=== PATIENT | male | born 1955 | race Caucasian/White ===

== ENCOUNTER 2023-05-24 08:22 | Outpatient (REF) | payer OTHER, SELFPAY | END 2023-05-24 08:23 | disposition home or self-care (01) | LOC: HO.SH 08:22 | PROVIDERS: PCP Internal Medicine; Visit Provider Internal Medicine | DX: Z01.118 Encounter for examination of ears and hearing with other abnormal findings (principal); H90.3 Sensorineural hearing loss, bilateral | CPT/HCPCS: 92557 ==

== ENCOUNTER 2023-05-24 09:33 | Outpatient (REF) | payer SELFPAY ==
--- NOTE | 2023-05-24 13:02 | MHC.AU.MED ---
Medical Clearance for Hearing Instrumentation Date: 05/24/23 Patient Name: Krzysztof Olguin Date of : 1955 Primary Care Provider: Referring Provider: Dharmesh Chou MD We have seen your patient on 05/24/23 and have determined that they are a candidate for amplification (See accompanying report). Specifically, they would benefit from: Hearing aid use in both ears There is a statute that addresses Medical Evaluation Requirements prior to fitting a patient with a hearing aid. According to [place] statute 265 CMR:6.03(1), (a) General. Except as provided in 265 CMR 6.03(1)(b), a cloth shearing supervisor shall not sell a hearing aid unless the prospective user has presented to the cloth shearing supervisor a written statement signed by a licensed physician that states that the patient's hearing loss has been medically evaluated and the patient may be considered a candidate for a hearing aid. The medical evaluation must have taken place within the preceding six months. Please note: Due to the [place] Statute referenced above, we cannot accept a signature other than that of a licensed physician. TRANSPORTATION DISPATCH MANAGER and PA signatures cannot be accepted. I am in agreement with the above recommendation. There is no medical contraindication for hearing instrumentation. Physician Signature Date Physician Name (Printed)
== END 2023-05-24 09:34 | disposition home or self-care (01) ==
LOC: HO.HAP 09:33
PROVIDERS: Visit Provider Internal Medicine
DX: Z46.1 Encounter for fitting and adjustment of hearing aid (principal); H90.3 Sensorineural hearing loss, bilateral
CPT/HCPCS: 92590

== ENCOUNTER 2023-06-07 14:54 | Outpatient (REF) | payer SELFPAY | END 2023-06-07 14:55 | disposition home or self-care (01) | LOC: HO.HAP 14:54 | PROVIDERS: Visit Provider Internal Medicine | DX: Z46.1 Encounter for fitting and adjustment of hearing aid (principal); H90.3 Sensorineural hearing loss, bilateral | CPT/HCPCS: 92700; V5261; V5267; V5299 ==

== ENCOUNTER 2023-06-22 13:24 | Outpatient (REF) | payer SELFPAY | END 2023-06-22 13:25 | disposition home or self-care (01) | LOC: HO.HAP 13:24 | PROVIDERS: Visit Provider Internal Medicine | DX: Z13.89 Encounter for screening for other disorder (principal) ==

== ENCOUNTER 2023-11-26 15:48 | Emergency (ER) | payer BC, SELFPAY ==
--- NOTE | ~2023-11-26 | XR_ITS ---
EXAMINATION: XR TIBIA AND FIBULA, LEFT CLINICAL INFORMATION: Pain, swelling COMPARISON: None available. TECHNIQUE: AP and lateral views of the left tibia and fibula were obtained. FINDINGS: The bones and soft tissues are normal. No fracture. No osseous lesions. Extensive vascular calcifications. XR/XR tibia fibula LT 2V IMPRESSION: Normal left tibia and fibula. Electronically signed by: Pauly Bee MD 11/26/2023 07:28 PM EDT
--- NOTE | ~2023-11-26 | US_ITS ---
EXAMINATION: US TRIPLEX LOWER EXTREMITY, LEFT CLINICAL INFORMATION: Pain, swelling, rule out DVT COMPARISON: None available. TECHNIQUE: Color-flow triplex imaging with spectral analysis and compression Doppler were performed on the left lower extremity. FINDINGS: Respiratory variation, normal compression and augmented flow are noted throughout the left lower extremity. The visualized common femoral vein, superficial femoral vein, profunda femoral vein, popliteal vein and midcalf peroneal and posterior tibial venous segments show no evidence of deep venous thrombosis. There is no Wahl's cyst. There are 2 fluid collections in the calf measuring 1.6 x 0.6 x 1.5 cm and 2.5 x 0.4 x 2.2 cm. US/US venous duplex LE IMPRESSION: 1. No evidence of deep venous thrombosis involving the left lower extremity. 2. 2 fluid collections in the calf. Electronically signed by: Pauly Bee MD 11/26/2023 06:29 PM EDT
[2023-11-26 15:55] VITALS: BP 153/78; PULSE 99; RESP 16; TEMP 36.7; O2SAT 94; BMI 25.5
--- NOTE | 2023-11-26 15:55 | ED.GENADULT ---
HPI - General Adult General Chief complaint: Extremity Problem Stated complaint: left calf pain, swelling Time Seen by Provider: 11/26/23 17:19 Source: patient Mode of arrival: ambulatory Limitations: no limitations History of Present Illness ED Provider: Irina PÉREZ narrative: Patient is a 68-year-old male presenting to the ED with complaint of left calf pain and swelling since yesterday. States that he was walking out of his house and could tell that he was going to miss the step. He made a split second decision to put more weight onto his left leg than he normally would have to prevent a fall forward onto his face. He states that the pain and swelling to his left lower leg began immediately after this incident. He denies head strike or loss of consciousness, state he didn't fall but just put too much weight onto his left leg. Went to urgent care this morning for an x-ray, and was referred to the ED to rule out DVT. He denies chest pain, palpitations, dyspnea. Denies prior PE/DVT. States pain has significantly improved since yesterday. complaint: left lower leg pain Onset (ago): day(s) Quality: aching Pain Consistency: other (improving) Associated symptoms: denies other symptoms Treatments prior to arrival: none Related Data Allergies Allergy/AdvReac Type Severity Reaction Status Date / Time No Known Allergies Allergy Verified 11/26/23 15:58 Review of Systems Review of Systems: As per HPI Yes all other systems are reviewed and are negative Constitutional: Constitutional: Reports as per HPI [facility] Social History Social History Advance Directives: No Advance Directives Information Provided: No Physical Exam ED Vital Signs: Vital Signs - 24 hr 11/26/23 15:55 11/26/23 19:06 Temperature 98.1 F 97.4 F Pulse Rate 99 95 Respiratory Rate 16 18 Blood Pressure 153/78 H 140/76 H Pulse Oximetry 94 100 Oxygen Delivery Method Room Air Room Air BMI result Body Mass Index 25.5 Vital signs have been reviewed and appear to be correct. Blood pressure elevated. Heart rate normal. Respiratory rate normal. Temperature normal. Oxygen saturation normal. Const General: cooperative, healthy appearing and no acute distress Orientation/consciousness: oriented to person, oriented to place, oriented to time and patient oriented x3 Limitations: no limitations HENMT Head: Yes normocephalic and Yes atraumatic Ears: external ears normal General nose exam: Normal external nose present Face and sinus: Yes face symmetric Mouth: oropharynx normal and moist mucous membranes Throat: Yes uvula midline Eyes Pupils: Equal, round and reactive pupils present Neck Neck: Yes normal visual inspection and Yes supple Resp Effort & Inspection: normal respiratory effort and able to speak in complete sentences Auscultation: clear to auscultation bilaterally Cardio Rate: regular rate Rhythm: regular rhythm Heart sounds: S1 normal heart sound present and S2 normal heart sound present GI Palpation (GI): Soft to palpation and nontender Auscultation: normoactive bowel sounds General: Yes no CVA tenderness Back/Spine/Pelvis Back: no CVA tenderness Skin General skin exam: elasticity normal and turgor normal Neuro General: oriented to person, oriented to place, oriented to time, patient oriented x3, moves all extremities, no focal motor deficits and CN's II-XI intact bilaterally Cranial nerves: Yes Equal, round and reactive pupils present Cognition (Neuro): normal cognition Extrem General: Yes full ROM, Yes normal exam except as noted, Yes no pedal edema and Yes no calf tenderness Left lower extremity: lower leg (no achilles tenderness, negative Singh test) Details: tenderness Location: of the posterior calf, localized swelling Location: of the proximal lower leg and no edema; no erythema, no palpable cords, no ecchymosis and no unusual warmth and foot Details: vascular exam Details: dorsalis pedis pulse present, posterior tibial pulse present and normal capillary refill Psych Mental Status: mental status grossly normal Affect: normal affect Thought process: Normal thought process present Course Course Course Narrative: RME performed by Ayla Winchester PA-C. Patient is a 68 year old assigned male at presenting to the emergency department with left lower leg pain and swelling. Patient states the other day he slammed his left lower leg down and has been having increased pain / swelling. Detailed physical exam and review of systems are deferred to the rock singer. Imaging ordered. Patient placed back in the waiting room pending room availability and results. Medical Decision Making Medical Decision Making MDM Narrative: Patient is a 68-year-old male presenting to the ED with complaint of left calf pain and swelling since yesterday. On exam patient is awake, A+Ox3, VS WNL, afebrile, normal neurological exam without focal deficits, physical exam findings as above. Given reported symptoms and physical exam findings, initial differential includes calf strain/sprain/tear. Less likely DVT as swelling is directly correlated to injury. Do not suspect compartment syndrome as patient has 2+ PT and DP pulses. Ultrasound notable for no DVT, 2 fluid collections in the calf likely hematomas. My interpretation is in agreement with the radiologist's interpretation. Differential Diagnosis Differential Diagnoses: The differential diagnosis associated with the presentation includes as per [facility] Independent Interpretation I performed an independent interpretation of an: Ultrasound Interpretation: No evidence of DVT to left lower extremity, two fluid collections in the calf likely hematomas Radiology Impression Discussion of test interpretation with radiology: I have reviewed the radiologist's reading. Radiologist Impression: US/US venous duplex LE LT IMPRESSION: 1. No evidence of deep venous thrombosis involving the left lower extremity. 2. 2 fluid collections in the calf. External Record Review External record reviewed: Inpatient record, Office record and Outpatient record Discharge Plan Discharge Clinical Impression: Strain of left calf muscle Patient Disposition: Home, Self-Care Instructions: Muscle Strain (DC) Additional Instructions: You were evaluated in the emergency department today for left lower leg pain and swelling. Your ultrasound did not show evidence of a DVT, also known as a blood clot, in your leg, but did show 2 small fluid collections which are most likely hematomas (bruising). Your x-ray did not show evidence of any fractures. We recommend that you apply an Terry wrap for compression, keep leg elevated while at rest, and apply ice for 10-15 minutes at a time several times daily. Weight bear as tolerated. Return to the emergency department if you develop increasing pain, swelling, new numbness or tingling, change of color in your foot. Follow-up with your primary care provider for any ongoing symptoms. Print Language: Luxembourgish
[2023-11-26 19:06] VITALS: BP 140/76; PULSE 95; RESP 18; TEMP 36.3; O2SAT 100
[2023-11-26 19:27] VITALS: BP 140/76; PULSE 95; RESP 18; TEMP 36.3; O2SAT 100
== END 2023-11-26 19:27 | disposition home or self-care (01) ==
PROVIDERS: Emergency Provider Emergency Medicine Emergency Medical Services; PCP Internal Medicine
DX: S86.912A Strain of unspecified muscle(s) and tendon(s) at lower leg level, left leg, initial encounter (principal); X58.XXXA Exposure to other specified factors, initial encounter; Y93.9 Activity, unspecified; Y92.9 Unspecified place or not applicable; Y99.9 Unspecified external cause status; M79.605 Pain in left leg
CPT/HCPCS: 73590; 93971; 99283; 99284

== ENCOUNTER 2023-12-25 11:30 | Outpatient (REF) | payer SELFPAY | END 2023-12-25 11:31 | disposition home or self-care (01) | LOC: HO.HAP 11:30 | PROVIDERS: Visit Provider Internal Medicine | DX: Z46.1 Encounter for fitting and adjustment of hearing aid (principal); H90.3 Sensorineural hearing loss, bilateral | CPT/HCPCS: 92593 ==

== ENCOUNTER 2024-10-10 10:46 | Outpatient (REF) | payer SELFPAY ==
--- OUTSIDE RECORDS SUMMARY | 2020-09-20 09:18 | XMS_ITS | Encounter Summary ---
Author Organization [facility] Address [address] [facility] [address] [place] [phone] Phone Care Team Providers Care Bank Manager Name Role Phone Dharmesh Chou MD Primary Care Provider + Encounter Details Date Type Department Care Team (Late st Contact Info) Description 09/20/2020 9:18 AM EDT Hospital Encounter [facility] [address] [place] [phone] Nimco Motta FNP [address] [place] [id number] [email or web address] Social History Tobacco Use Types Packs/Day Years Used Date Smoking Tobacco: Former Smokeless Tobacco: Never Alcohol Use Standard Drinks/Week Comments Yes 2 (1 standard drink = 0.6 oz pur e alcohol) Occasional Education Answer Date Recorded Are you interested in more education? Not on nazanin e 06/03/2022 Are you concerned about learning? Not on file 06/03/2022 No 06/03/2022 No 06/03/2022 Digital Access Answer Date Recorded No 07/02/2022 No 07/02/2022 Reliable internet access at home? Not on file 07/02/2022 Device with a working camera? Not on file Sex and Gender Information Value Date Recorded Sex Assigned at Not on file Legal Sex Male 8:58 AM EDT Gender Identity Not on file Sexual Orientation Not on file documented as of this encounter Plan of Treatment Not on file documented as of this encounter Procedures Procedure Name Priority Date/Time Associated Diagnosis Comments XR ANKLE 3 OR MORE VIEWS (LEFT) Urgent/patient waiting 09/20/2020 9:28 AM EDT Fall, initial encounter documented in this encounter Results * XR ANKLE 3 OR MORE VIEWS (LEFT) (09/20/2020 9:28 AM EDT) Anatomical Region Laterality Modality Ankle Left Computed Radiogr aphy 09/20/2020 9:30 AM EDT Impressions 09/20/2020 9:43 AM EDT No fracture or dislocation in the left tib-fib or left ankle. ATTESTATION: IBenito as teaching physician, have reviewed the images for this case and if necessary edited the report originally created by Rahel Soto. Narrative 09/20/2020 9:43 AM EDT XR TIBIA FIBULA 2 VIEWS (LEFT), XR ANKLE 3 OR MORE VIEWS (LEFT) COMPARISON: None FINDINGS: No fracture in the left tib-fib. Normal alignment. No lytic or blastic lesion. Visualized portion of the knee appear normal. No soft tissue swelling. Severe vascular calcifications. No acute fracture or dislocation in left ankle. Ankle mortise is symmetric and talar dome is intact. Tiny plantar calcaneal spur. Vascular calcifications. Procedure Note Ranulfo Hancock MD, MPH - 09/20/2020 XR TIBIA FIBULA 2 VIEWS (LEFT), XR ANKLE 3 OR MORE VIEWS (LEFT) COMPARISON: None FINDINGS: No fracture in the left tib-fib. Normal alignment. No lytic or blasticlesion. Visualized portion of the knee appear normal. No soft tissueswelling. Severe vascular calcifications. No acute fracture or dislocation in left ankle. Ankle mortise is symmetricand talar dome is intact. Tiny plantar calcaneal spur. Vascularcalcifications. IMPRESSION: No fracture or dislocation in the left tib-fib or left ankle. ATTESTATION: IBenito as teaching physician, have reviewed theimages for this case and if necessary edited the report originally createdby Rahel Soto. us Nimco Motta STRATEGIC ALLIANCES MANAGER IMG XR LOWER EXTREMITY Tanika l Result documented in this encounter Visit Diagnoses Not on filedocumented in this encounter Care Teams Bank Manager Relationship Specialty Start Date End Date Dharmesh Chou MD [address] [facility] 1 [place] [address] PCP - General Internal Medicine 09/20/20 documented as of this encounter Additional Source Comments The information contained in this document represents components of the legal health record. It is not the complete legal health record.[facility]
--- OUTSIDE RECORDS SUMMARY | 2020-09-20 09:19 | XMS_ITS | Encounter Summary ---
Author Organization [facility] Address [address] [facility] [address] [place] [address] Phone Care Team Providers Care Risk Management Professional Name Role Phone Dharmesh Chou MD Primary Care Provider + Encounter Details Date Type Department Care Team (Late st Contact Info) Description 09/20/2020 9:19 AM EDT Hospital Encounter [facility] [address] [place] [address] Nimco Motta FNP [address] [place] [phone] [email or web address] Social History Tobacco Use Types Packs/Day Years [...] Name Priority Date/Time Associated Diagnosis Comments XR TIBIA FIBULA 2 VIEWS (LEFT) Urgent/patient waiting 09/20/2020 9:27 AM EDT Fall, initial encounter documented in this encounter Results * XR Tibia Fibula 2 Views (Left) (09/20/2020 9:27 AM EDT) Anatomical Region Laterality Modality Leg Left Computed Radiogr aphy 09/20/2020 9:30 AM [...] originally createdby Rahel Soto. us Nimco Motta RADIATION ONCOLOGIST IMG XR LOWER EXTREMITY Tanika l Result documented in this encounter Visit Diagnoses Not on filedocumented in this encounter Care Teams Risk Management Professional Relationship Specialty Start Date End Date Dharmesh Chou MD [address] [facility] 1 [place] [address] PCP - General Internal Medicine 09/20/20 documented as of this encounter Additional Source Comments The information contained in this document represents components of the legal health record. It is not the complete legal health record.[facility]
--- OUTSIDE RECORDS SUMMARY | 2023-10-24 04:00 | XMS_ITS ---
Author Organization [facility] Address [address] [place] [address] Care Team Providers Care Guidance Consultant Name Role Phone José Antonio ZAMORA, Dharmesh Primary Care Provider Unavail able Larissa Murphy Unavailable [phone] Nahum Pierce [phone] Encounters Encounter Location Date Provider Diagnosis [address] [address] 10/24/2023 Nahum Pierce Plan Of Treatment No Information Progress Notes * Krzysztof MCCAIN EDOB:04/1955 (69 yo M)Acc No.[id number]:10/24/2023 Progress Note Patient: Krzysztof TURNER Provider: Trent Pierce DPM :1955 A ge:68 Y S ex:Male Date:10/24/2023 Address:[address] [place] [address] Reji Mcbride [id number] Pcp:Dharmesh Chou MD Subjective: * Chief Complaints: * * Medical History: Objective: * Vitals: Assessment: Plan: * Treatment: * Images: * The named appointment provid er may or may not be the originator of this progress note, and it is not deemed complete until electronically signed by the appointment provider. Sign off status: Pending * Provider: Trent Pierce DPM Date: 10/24/2023 Generated for William stout/Napoleon/eTransmitting on: 10/10/2024 11:48 AM EDT
--- OUTSIDE RECORDS SUMMARY | 2024-01-21 04:30 | XMS_ITS ---
Author Organization [facility] Address [address] [place] [address] Care Team Providers Care Lawn Specialist Name Role Phone Dharmesh Chou MD Primary Care Provider Unavail Larissa Banks Unavailable [phone] REASON FOR VISIT ins not approved yet Encounters Encounter Location Date Provider Diagnosis [facility] [address] [place] [address] 01/21/2024 Larissa Murphy Plan Of Treatment No Information Progress Notes * Krzysztof MCCAIN EDOB:04/1955 (69 yo M)Acc No.[id number]:01/21/2024 Progress Note Patient: Krzysztof TURNER Provider: Kannan Murphy DPM :1955 A ge:68 Y S ex:Male Date:01/21/2024 Address:[place] [id number] Pcp:Dharmesh Chou MD Subjective: * Chief Complaints: * 1 . Ins not approved yet. * Medical History: Objective: * Vitals: Assessment: Plan: * Treatment: * Images: * The named appointment provid er may or may not be the originator of this progress note, and it is not deemed complete until electronically signed by the appointment provider. Sign off status: Pending * Provider: Kannan Murphy DPM Date: 03/23/2023 Generated for William stout/Napoleon/eTransmitting on: 0 10/10/2024 11:47 AM EDT
--- OUTSIDE RECORDS SUMMARY | 2024-03-25 05:00 | XMS_ITS ---
Author Organization [facility] Address [address] [place] [address] Care Team Providers Care Film Inspector Name Role Phone Dharmesh Chou MD Primary Care Provider Unavail able Larissa Murphy Unavailable [phone] Sloane Davison Unavailable [phone] Perez Encounters Encounter Location Date Provider Diagnosis [facility] [address] [place] [address] 03/25/2024 Sloane Davison Plan Of Treatment No Information Progress Notes * Hermilo MCCAINmond EDOB:04/1955 (69 yo M)Acc No.[id number]:03/25/2024 Progress Note Patient: Krzysztof TURNER Provider: Jackie Davison DPM :1955 A ge:68 Y S ex:Male Date:03/25/2024 Address:[address] [place], [place] [address], [id number] Pcp:Dharmesh Chou MD Subjective: * Chief Complaints: * [address] Perez[address] * Medical History: Objective: * Vitals: Assessment: Plan: * Treatment: * Images: * The named appointment provid er may or may not be the originator of this progress note, and it is not deemed complete until electronically signed by the appointment provider. Sign off status: Pending * Provider: Jackie Davison DPM Date: 03/25/2024 Generated for William stout/Napoleon/eTransmitting on: 0 10/10/2024 11:47 AM EDT
--- OUTSIDE RECORDS SUMMARY | 2024-08-11 05:00 | XMS_ITS ---
Author Organization [facility] Address [address] [place] [address] Care Team Providers Care Custom Wood Stair Builder Name Role Phone José Antonio ZAMORA, Dharmesh Primary Care Provider Unavail Larissa Banks Unavailable [phone] Encounters Encounter Location Date Provider Diagnosis [facility] [address] [place] [address] 08/11/2024 Larissa Murphy Plan Of Treatment No Information Progress Notes * Krzysztof MCCAIN EDOB:04/1955 (69 yo M)Acc No.[id number]:08/11/2024 Progress Note Patient: Krzysztof TURNER Provider: Kannan Murphy DPM :1955 A ge:69 Y S ex:Male Date:08/11/2024 Address:[place] [phone] Pcp:Dharmesh Chou MD Subjective: * Chief Complaints: * * Medical History: Objective: * Vitals: Assessment: Plan: * Treatment: * Images: * The named appointment provid er may or may not be the originator of this progress note, and it is not deemed complete until electronically signed by the appointment provider. Sign off status: Pending * Provider: Kannan Murphy DPM Date: 0 08/11/2024 Generated for Martini ng/Fajoeg/eTransmitting on: 0 10/10/2024 11:47 AM EDT
--- OUTSIDE RECORDS SUMMARY | 2024-10-10 11:48 | XMS_ITS | Patient Health Record ---
Author Organization [facility] Liam karthikeyan SequeiraJessee Address [address] [facility] [place] [address] Care Team Providers Care Boarding Machine Operator Name Role Phone Dharmesh Chou MD Primary Care Provider Unavail able Larissa Murphy Unavailable [phone] Nahum Pierce Unavailable [phone] Sloane Davison Unavailable [phone] Allergies No Known Allergies Results Component Value Reference Range Notes HEMOGLOBIN A1C (GLYCOHEMOGLO BIN) Reviewed date:02/20/2024 09:03:15 AM Interpretation: Performing Lab: Notes/Report: HEMOGLOBIN A1C % (HH) 6.4 Reason For Referral No Information Medications Medication SIG (Take, Route, Frequency, Duration) Notes Start Date End Date Status Lisinopril Active Insulin Active Atorvastatin Calcium 10 MG 1 tablet Orally Once a day Active Aspirin 81 MG 1 tablet Orally Once a day Active Extra Depth Orthopedic Shoes (1 Pair) with Customized Heat Molded Multidensity Innersoles (3 Pair) as directed Dx: IDDM/Polyneuropathy (E10.42), Hammertoe Foot Deformity (M20.41,M20.42), Preulcerative Skin Lesion(s) (L85.1) Active Extra-Depth Diabetic Shoes with 3 Pair Custom heat-molded multi-density innersoles . for 1 year . Dx:please accomodate for rocker bottom right midfoot and preulcer left forefoot; Duration: . 02/17/2015 Not-Taking Keflex 500 MG 1 capsule Orally jocelyn ry 12 hrs; Duration: 10 day(s) 07/31/2019 Not-Taking Viagra 25 MG 1 tablet as needed Orally Once a day Not-Taking Extra Depth Diabetic Shoes with 3 Pair Custom heat-molded multi-density innersoles for 1 year Dx: N ot-Taking Extra Depth Diabetic Shoes with 3 Pair Custom heat-molded multi-density innersoles for 1 year Dx: 05/05/2021 N ot-Taking Extra Depth Orthopedic Shoes (1 Pair) with Customized Heat Molded Multidensity Innersoles (3 Pair) as directed Dx: IDDM/Polyneuropathy (E10.42), Hammertoe Foot Deformity (M20.41,M20.42), Preulcerative Skin Lesion(s) (L85.1) Active Diabetic Insoles Act tray Immunizations Vaccine Route Administration Date Status Comme nts Influenza Unknown 01/17/2016 Refused Influenza Unknown 07/31/2019 Refused COVID-19 Pfizer BioNTech Vaccine Unknown 10/30/2020 Administered 1st 04/08/2020 2nd 04/29/2020 Social History Tobacco Use: Social History Observation Description Date Details (start date - stop date) Never Smoker NA - NA Tobacco use other than smoking: Question Answer Notes Are you an other tobacco user? No Tobacco Control (Standard) Question Answer Notes Tobacco use: Nonsmoker Additional Findings: Tobacco non-user Current no nsmoker AUDIT-C (Standard) Question Answer Notes Did you have a drink containing alcohol in the p ast year? No Points 0 Interpretation Negative Problems Problem Type SNOMED Code ICD Code Onset Dates Problem Status W/U Status Risk Notes Problem Polyneuropathy due to type 2 diabetes mellitus (707901572) Type 2 diabetes mellitus with diabetic polyneuropathy (E11.42) Active confirmed Problem Diabetic neuropathic arthropathy (586485439) Charcot foot due to diabetes mellitus (E11.610) Active confirmed Vital Signs Blood pressure diastolic 70 mm Hg 02/20/2024 Height 5ft 7in in 02/20/2024 Blood pressure systolic 120 mm Hg 02/20/2024 Weight 165 lbs 02/20/2024 BMI 25.84 kg/m2 02/20/2024 Procedures Procedure Date Ordered Date Performed Result Body Sit e 80587-MJMDYTU NAIL, 6 OR MORE 02/20/2024 N/A Encounters Encounter Location Date Provider Diagnosis [facility] [place] [address] [place] [address] 02/20/2024 Larissa Murphy Type 2 diabetes mellitus with diabetic polyneuropathy E11.42 ; Tinea unguium B35.1 and Charcot foot due to diabetes mellitus E11.610 [facility] [address] [address] 01/24/2024 Larissa Murphy [facility] [address] 05/22/2024 Larissa Murphy Assessments Encounter Date Diagnosis (ICD Code) Assessment Notes Treatment Notes Treatment Clinical Notes Section Notes 02/20/2024 Type 2 diabetes mellitus with diabetic polyneuropathy (ICD-10 - E11.42) 02/20/2024 Tinea unguium (ICD-10 - B35.1) 02/20/2024 Charcot foot due to diabetes mellitus (ICD-10 - E11.610) Plan Of Treatment Pending Test Test Name Order Date X ray : Foot, left 2V 02/17/2015 X ray : Foot, right 2V 02/17/2015 X ray : Foot, left 3V 06/06/2017 X ray : Foot, right 3V 02/10/2019 43879-SLIHMXA NAIL, 6 OR MORE 02/20/2024 87755-QCPRWBD NAIL, 1-5 06/06/2017 63030-SDUPPVU NAIL, 1-5 03/13/2018 16821-XRRPNRF NAIL, 1-5 01/15/2017 48814-XDDBEAA NAIL, 1-5 07/17/2016 40620-DNPBVZD NAIL, 1-5 01/17/2016 97861-Dety Destruction, 1-14 06/06/2017 29446-Tbox Destruction, 1-14 06/20/2017 12348- Debride <25 sq cm 09/23/2015 88084- Debride <25 sq cm 06/06/2017 65585-UKKFKSP SKIN/TISSUE 02/01/2021 66589-KIHVFGW SKIN/TISSUE 02/16/2021 69910-UWVGXOR SKIN/TISSUE 03/08/2021 42677 I&D ABSCESS- SIMPLE,SINGLE 020 27863-MQJX SKIN LESIONS, OVER 4 09/01/19 22 39033-JQWP SKIN LESIONS, 2 TO 4 01/16/20 17 07851-CQCK SKIN LESIONS, 2 TO 4 12/14/19 21 92827-WFOY SKIN LESIONS, 2 TO 4 05/06/19 22 44587-CVKQ SKIN LESIONS, 2 TO 4 04/20/19 21 76021-DKWO SKIN LESIONS, 2 TO 4 08/17/19 21 41416-ORRN SKIN LESIONS, 2 TO 4 12/17/19 20 05835-VCGA SKIN LESIONS, 2 TO 4 09/17/19 19 89926-XIDE SKIN LESIONS, 2 TO 4 02/10/19 20 67632-LFMK SKIN LESIONS, 2 TO 4 07/31/19 20 83356-SNBW SKIN LESIONS, 2 TO 4 09/20/19 18 53145-SUMA SKIN LESIONS, 2 TO 4 06/07/19 18 05145-GLFC SKIN LESIONS, 2 TO 4 03/13/19 19 79414-ONOU SKIN LESIONS, 2 TO 4 06/11/19 19 68060-HUCF SKIN LESIONS, 2 TO 4 07/18/19 17 74075-GPDH SKIN LESIONS, 2 TO 4 10/13/19 16 16402-MNBF SKIN LESIONS, 2 TO 4 01/17/20 16 08462-VJXY SKIN LESIONS, 2 TO 4 02/17/19 16 34906-PVYR SKIN LESIONS, 2 TO 4 04/28/19 16 45247-YQZI SKIN LESIONS, 2 TO 4 07/28/19 16 42296-KGBN NAIL(S) 07/28/2015 08625-FPBQ NAIL(S) 01/17/2016 80039-XTUT NAIL(S) 10/13/2015 64622-BNPC NAIL(S) 07/17/2016 84569-ERKR NAIL(S) 01/15/2017 L2454-EYROJYZI DYSTROPHIC NAILS ANY # V3572-TFBEJKZZ DYSTROPHIC NAILS ANY # H8091-TFWCMDHF DYSTROPHIC NAILS ANY # K7580-EUAVVQFE DYSTROPHIC NAILS ANY # N6938-TDCYPNKG DYSTROPHIC NAILS ANY # A5268-UQMBKWCY DYSTROPHIC NAILS ANY # M2423-RLIGRISG DYSTROPHIC NAILS ANY # N9959-CVSCBJFX DYSTROPHIC NAILS ANY # 11495-FACLZNUV OF HEMATOMA/FLUID 019 71087-PWEBZAXW OF HEMATOMA/FLUID 016 HEMOGLOBIN A1C (GLYCOHEMOGLOBIN) 020 Insurance Providers Payer Name Payer Address Payer Phone Subscriber Number Group Number Insured Name Patient Relationship to Insured Coverage Start Date Coverage End Date [facility] All Others [address] [place] [address] [id number] Deborah Bird Spouse - patient is the spouse of the insured Medical (General) History Medical History History ICD Code Broken bones Cancer High blood pressure Poor circulation Cataracts Measles Mumps Chicken pox type I diabetes Surgical History Surgery Date(Month/Year) testicular tumor removal cataract surgery 01/2016 R toe foot surgery 02/2021
--- OUTSIDE RECORDS SUMMARY | 2024-10-10 11:48 | XMS_ITS | Clinical Summary ---
Author Organization [address] [facility] Address [address] [place] [address] Phone Care Team Providers Care Geographical Historian Name Role Phone Dharmesh Chou MD Primary Care Provider [phone] Allergies No known active allergies Medications lancets (OneTouch Delica Plus Lancet) 33 gauge USE TO CHECK BLOOD GLUCOSE 4 TIMES A DAY 5 Active NovoLOG U-100 Insulin aspart 100 unit/mL injection INJECT SUBCUTANEOUSLY UP TO50 UNITS DAILY VIA INSULIN PUMP ( FOR DIABETES MELLITUS TYPE 1) 5 Active blood sugar diagnostic (OneTouch Verio test strips) test strip USE TO CHECK BLOOD GLUCOSE 4 TIMES A DAY 5 Active atorvastatin (LIPITOR) 10 mg tablet Take 1 tablet (10 mg total) by mouth 1 (one) time each day. 5 Active Social History Tobacco Use Types Packs/Day Years Used Date Smoking Tobacco: Never Smokeless Tobacco: Never Alcohol Use Standard Drinks/Week Comments Never 0 (1 standard drink = 0.6 oz pur e alcohol) Sex and Gender Information Value Date Recorded Sex Assigned at Not on file Legal Sex Male 3:13 PM EST Gender Identity Not on file Sexual Orientation Not on file Obstetrics History Plan of Treatment Upcoming Encounters Date Type Department Care Team ([facility] Contact Info) Description 11/19/2024 8:15 AM EDT Office Visit Orthopedic Surgery [facility] [address] [address] Carlos Pierce, DPM [address] [address] Health Maintenance Due Date Last Done Comments Diabetes: Annual GFR (Glomerular Filtration Rate) 1954 Diabetes: Annual Foot Exam 1964 Diabetes: Annual Retina Eye Exam 1964 DTaP,Tdap,and Td Vaccines (1 - Tdap) 1973 Pneumococcal Vaccine: 50+ Years (1 of 1 - PCV) 2004 Zoster Vaccines (1 of 2) 2004 RSV Immunization Adult Patients (1 - Risk 60-74 years 1-dose series) 2014 Abdominal Aortic Aneurysm (AAA) Screen 01/04/2022 Cholesterol Screening (Lipid Panel) 01/04/2022 Colorectal Cancer Screening: Colonoscopy 01/04/2022 Falls Risk Assessment 01/04/2022 Hepatitis C Screening 01/04/2022 Social Influencers of Health Screening 01/04/2022 Depression Screening 02/06/2024 Diabetes: Annual Urine Albumin-Creatinine Ratio (uACR) 05/06/2024 Diabetes: Blood Sugar Contro l Test (HGBA1C) 05/06/2024 COVID-19 Vaccine ( - 2024-2 6 season) 2024 11/02/2020, 04/29/2020, 04/08/2020 Influenza Vaccine (#1) 2024 HIB Vaccines Aged Out No longer eligi ble based on patient's age to complete this topic HPV Vaccines Aged Out No longer eligi ble based on patient's age to complete this topic Hepatitis A Vaccines Aged Out No long er eligible based on patient's age to complete this topic Hepatitis B Vaccines Aged Out No long er eligible based on patient's age to complete this topic IPV Vaccines Aged Out No longer eligi ble based on patient's age to complete this topic MMR Vaccines Aged Out No longer eligi ble based on patient's age to complete this topic Meningococcal ACWY Vaccine Aged Out N o longer eligible based on patient's age to complete this topic Meningococcal B Vaccine Aged Out No l onger eligible based on patient's age to complete this topic RSV Immunization Patients Under 20 months Aged Out No longer eligible b ased on patient's age to complete this topic Varicella Vaccines Aged Out No longer eligible based on patient's age to complete this topic Insurance [facility] Care Teams Geographical Historian Relationship Specialty Start Date End Date Dharmesh Chou MD [address] [place] [address] [address] [place], [place] PCP - General Internal Medicine 03/08/21
--- OUTSIDE RECORDS SUMMARY | 2024-10-10 11:48 | XMS_ITS | Clinical Summary ---
Author Organization [facility] Address [address] [address] Phone Care Team Providers Care Size Mixer Name Role Phone Dharmesh Chou MD Primary Care Provider + Allergies No known active allergies Medications HUMALOG U-100 INSULIN 100 unit/mL injection vial 1 Active atorvastatin (LIPITOR) 10 MG tablet 1 Active aspirin 81 mg chewable tablet Take 81 mg by mouth daily. Active lisinopril (PRINIVIL,ZESTR IL) 2.5 MG tablet See Instructions, Take 1 tablet daily by mouth. 90-day supply., # 90 tablet, Refills 2, Tot. Refills 2, Maintenance, 09/04/23 16:03:00 EDT, Instructions Replace Required Details, Route to Pharmacy Electronically, [facility], 171.7, cm, ... 4 Active insulin glargine (LANTUS U-100 INSULIN) 100 unit/mL injection vial See Instructions, Take 20 units once daily in the event of insulin pump failure. E10.65. 90 day supply, # 10 mL, 3 Refills, Soft Stop, 05/07/23 8:14:00 EDT, Solution, [facility], Partial fill upon patient request if the prescription is fo... 4 Active Active Problems No known active problems Social History Tobacco Use Types Packs/Day Years Used Date Smoking Tobacco: Former Smokeless Tobacco: Never Tobacco Cessation:Counseling Given: Not Answered Alcohol Use Standard Drinks/Week Comments Yes 2 [...] on file Sexual Orientation Not on file Last Filed Vital Signs Vital Sign Reading Time Taken Comments Blood Pressure 176/72 11/26/2023 10:43 AM EDT Pulse 104 11/26/2023 10:43 AM EDT Temperature 36.5 C (97.7 F) 11/26/2023 10:43 AM EDT Respiratory Rate 16 11/26/2023 10:43 AM EDT Oxygen Saturation 99% 11/26/2023 10:43 AM EDT Inhaled Oxygen Concentration - - Weight 65.8 kg (145 lb) 09/20/2020 9:08 AM EDT p er pt Height 170.2 cm (5' 7 ) 09/20/2020 9:08 AM EDT Body Mass Index 22.71 09/20/2020 9:08 AM EDT Plan of Treatment Health Maintenance Due Date Last Done Comments Adult Td,Tdap Booster 1954 CREATININE LEVEL 1954 LIPID PANEL 1954 POTASSIUM LEVEL 1954 DEPRESSION SCREENING 1966 SMOKING Hx and SMOKELESS TOBACCO SCREENING 07/09/1967 HEPATITIS C SCREENING 1972 COLOGUARD 07/09/1999 COLONOSCOPY 07/09/1999 COLORECTAL CANCER SCREENING 07/09/1999 FIT TEST 07/09/1999 FOBT 07/09/1999 SIGMOIDOSCOPY 07/09/1999 VIRTUAL COLONOSCOPY 07/09/1999 PNEUMOCOCCAL VACCINES (50+ years) (1 of 1 - PCV) 2004 ZOSTER VACCINES (1 of 2) 2004 ABDOMINAL AORTIC ANEURYSM (AAA) SCREENING 07/09/2019 INFLUENZA VACCINE (#1) 2024 COVID-19 VACCINE (4 - 2024-2 6 season) 2024 11/02/2020, 04/29/2020, 04/08/2020 RSV VACCINE (1 - 1-dose 75+ series) 2029 HEPATITIS A VACCINES Aged Out No long er eligible based on patient's age to complete this topic HIB VACCINES Aged Out No longer eligi ble based on patient's age to complete this topic MENINGOCOCCAL VACCINES (ACWY) Aged Out No longer eligible based on patient's age to complete this topic MENINGOCOCCAL VACCINES (B) Aged Out N o longer eligible based on patient's age to complete this topic Medical Devices Not on file Insurance [facility] Member Subscriber Plan / Payer (Ef fective 2019-Present) Name:Krzysztof Mccain Relation to Subscriber:Spouse Name:BENJAMIN MCCAIN Date of :1956 Address: [address] [place] [address] Payer ID:Not on file Type:HMO Address: [address] [facility] Address: [address] [address] [facility] [place] [address] [facility] Address: [facility] [address] [place] [address] [facility] Care Teams Size Mixer Relationship Specialty Start Date End Date Dharmesh Chou MD [address] [place] [address] [address] [place] [address] PCP - General Internal Medicine 09/20/20 Additional Source Comments The information contained in this document represents components of the legal health record. It is not the complete legal health record.[facility]
--- NOTE | 2024-10-10 12:03 | MHC.AU.HA3 ---
Hearing Instrument Follow-Up- Binaural Date of Visit: 10/10/24 Right Ear: Ruddy, Model, Color, Serial Number: Moses Perry miniRITE R narcisa [id number] Test Fixture Assembler Repair Warranty: 06/22/2026 Test Fixture Assembler Loss and Damage Warranty: 06/22/2026 [facility] Service Plan: N/A Battery Size: Rechargeable Stone Setter/Slim Tube: #2 85g Earmold/Dome/CShell/SlimTip:6mm dbl chery Type of Wax Guard: Oticon Minifit prowax Dispensed By: [facility] Date of Fittin06/07/23 Left Ear: Ruddy, , Color, Serial Number: Moses Perry miniRITE narcisa Taylor [id number] Test Fixture Assembler Repair Warranty: 06/22/2026 Test Fixture Assembler Loss and Damage Warranty: 06/22/2026 [facility] Service Plan: N/A Battery Size: Rechargeable Stone Setter/Slim Tube: #2 85g Earmold/Dome/CShell/SlimTip: 6mm dbl chery Type of Wax Guard: Oticon minifit prowax Dispensed By: [facility] Date of Fittin06/07/23 Follow-Up Summary: Seen for hearing aid problem. Krzysztof reports frustration with hearing aids. Notes he can hear the authorization manager but not people. Reports this has been an issue since he got them and so he stopped wearing them consistently out of frustration. Notes he tries to put them on if he is going out. 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 Cleaned aids, replaced domes and wax guards. Notes indicate 8mm double chery, Krzysztof came in with 6mm on, kept 6mm on. Listening check positive. Aids in need of firmware update, completed. Switched from DSL to VAC. Increased adaptation from 2 to 3. Increased noise management in quiet to maximum level. Other noise management already at max. Sudden sound reduction already at max. Counseled on adjustment to amplification and importance of consistent wear. Encouraged to establish a routine of being sure to put hearing aids on when done with work that involves loud noise for the day. Krzysztof reported feeling like he could hear me better in office. Advised to try to acclimate to these settings for a couple weeks and return if in need of further adjustment. Recommendations: Recommendations: Hearing instrument follow-up or maintenance as needed. Diagnosis Code(s): Primary Diagnosis: H90.3 Bilateral Sensorineural Hearing Loss Signature: Provider: Dilma Moyer, CCC-A
== END 2024-10-10 10:47 | disposition home or self-care (01) ==
LOC: HO.HAP 10:46
PROVIDERS: Visit Provider Internal Medicine
DX: Z46.1 Encounter for fitting and adjustment of hearing aid (principal); H90.3 Sensorineural hearing loss, bilateral
CPT/HCPCS: 92593